=== PATIENT | male | born 1970 | race Caucasian/White ===

== ENCOUNTER 2019-08-07 12:16 | Emergency (ER) | payer BC ==
--- NOTE | 2019-08-07 12:59 | EDM.PDOC ---
ED HPI GENERAL MEDICAL PROBLEM - General Chief Complaint: Laceration Time Seen by Provider: 08/07/19 12:30 Source of Information: Reports: Patient History Limitations: Reports: No Limitations - History of Present Illness INITIAL COMMENTS - FREE TEXT/NARRATIVE: This is a 49yo M here for a fish hook of the right hand. He got one tri hook with a hook in the index and the second hook in the middle finger. He was unable to remove it himself. He has removed a prior fish hook through his nail in the past. He denies a recent Tetanus vaccination. Patient denies any other health concerns. Onset: Sudden Location: Reports: Upper Extremity, Right Quality: Reports: Stabbing Severity: Mild ED ROS GENERAL - Review of Systems Review Of Systems: ROS reveals no pertinent complaints other than HPI. ED EXAM, SKIN/RASH Exam: See Below Exam Limited By: No Limitations General Appearance: Alert, WD/WN, No Apparent Distress Respiratory/Chest: No Respiratory Distress Cardiovascular: Normal Peripheral Pulses Extremities: Other (fish hook embedded in 1st and 2nd middle phalangeal area of fingers) ED SKIN PROCEDURES - Foreign Body Removal Consent Obtained:: Patient Performing Doctor:: David Cherry Foreign Body Other Location Comment:: 2nd and 3rd digit fish hook embedded in middle phalanx of each finger Anesthesia Type: Local (2mL) Complications:: No Comments:: Area prepped sterilely, injected 1mL in 2nd finger and 1mL injected in 3rd finger. Iodine used to cleanse area. Pliers used to clip one hook to separate the tri hook. 21ga needle used to track the mk and remove both hooks. No complications. Bacitracin used on both fingers, bandaged and tetanus to be given by nurse. Course - Vital Signs Last Recorded V/S: Last Vital Signs Temp 36.9 C 08/07/19 12:35 Pulse 78 08/07/19 12:35 Resp 18 08/07/19 12:35 BP 173/109 H 08/07/19 12:35 Pulse Ox 95 08/07/19 12:35 Departure - Departure Time of Disposition: 12:55 Disposition: Home, Self-Care 01 Condition: Good Clinical Impression: Fish hook injury of finger of right hand Qualifiers: Encounter type: initial encounter Qualified Code(s): S69.91XA - Unspecified injury of right wrist, hand and finger(s), initial encounter - Discharge Information Instructions: Diphtheria, Tetanus, Acellular Pertussis, Hepatitis B, Poliovirus Vaccine Referrals: PCP,Unknown [Primary Care Provider] - Forms: ED Department Discharge Additional Instructions: Call MD if swelling, increased redness, or irritated. Keep hand clean and dry. Apply bandage as needed - Problem List & Annotations (1) Fish hook injury of right index finger SNOMED Code(s): 60652847 Code(s): S69.91XA - UNSP INJURY OF RIGHT WRIST, HAND AND FINGER(S), INIT ENCNTR Status: Acute Priority: High Current Visit: Yes Qualifiers: Encounter type: initial encounter Qualified Code(s): S69.91XA - Unspecified injury of right wrist, hand and finger(s), initial encounter (2) Fish hook injury of right middle finger SNOMED Code(s): 92480029 Code(s): S69.91XA - UNSP INJURY OF RIGHT WRIST, HAND AND FINGER(S), INIT ENCNTR Status: Acute Priority: High Current Visit: Yes Qualifiers: Encounter type: initial encounter Qualified Code(s): S69.91XA - Unspecified injury of right wrist, hand and finger(s), initial encounter - Problem List Review Problem List Initiated/Reviewed/Updated: Yes - Assessment/Plan Plan: Patient counseled on close f/u and rtc or ER as needed. Discussed monitoring for infection and tetanus prophylaxis. F/u as routine.
[2019-08-07] MEDS ORDERED: Diphtheria,Pertussis(Acell),Tetanus Vaccine 0.5 ML SDV inactive IM ONE (13:01)
== END 2019-08-07 13:00 | disposition home or self-care (01) ==
LOC: LB.ED 12:16
DX: S61.240A Puncture wound with foreign body of right index finger without damage to nail, initial encounter (principal); S61.242A Puncture wound with foreign body of right middle finger without damage to nail, initial encounter; Z23 Encounter for immunization; W45.8XXA Other foreign body or object entering through skin, initial encounter
CPT/HCPCS: 90471; 90715; 99282-25; J2001